=== PATIENT | male | born 1950 | race Two or more races ===

== ENCOUNTER 2019-03-23 13:32 | Emergency (ER) | payer OTHER ==
[~2019-03-23] VITALS: Ht 180.3 cm; Wt 119.7 kg
[~2019-03-23 13:32] MED LIST: NABUMETONE750 MG PO
[2019-03-23] MEDS ORDERED: FORTAMET1000 MG PO (14:10)
[2019-03-23] MEDS ORDERED: INVOKANA100 MG PO (14:10)
[2019-03-23] MEDS ORDERED: LOSARTAN POTASS50 MG PO (14:11)
[2019-03-23] MEDS ORDERED: ASPIR 8181 MG PO (14:11)
[2019-03-23] MEDS ORDERED: TOPROL XL25 M1 PO (14:11)
== END 2019-03-23 19:49 | disposition home or self-care (01) ==
LOC: ER 13:32
DX: J45.998 Other asthma (principal); J06.9 Acute upper respiratory infection, unspecified

== ENCOUNTER 2021-01-02 09:49 | Outpatient (CLI) | payer OTHER ==
[~2021-01-02 09:49] MED LIST changes: +ASPIR 8181 MG PO; +FORTAMET1000 MG PO; +INVOKANA100 MG PO; +LOSARTAN POTASS50 MG PO; +TOPROL XL25 M1 PO
== END 2021-01-02 09:58 | disposition home or self-care (01) ==
LOC: RAD 09:49
PROVIDERS: ATTEND Orthopaedic Surgery
DX: M25.561 Pain in right knee (principal); M25.562 Pain in left knee

== ENCOUNTER 2021-05-22 10:13 | Outpatient (CLI) | payer OTHER | END 2021-05-22 10:14 | disposition home or self-care (01) | LOC: LAB 10:13 | PROVIDERS: ATTEND Orthopaedic Surgery | DX: E55.9 Vitamin D deficiency, unspecified (principal); M85.9 Disorder of bone density and structure, unspecified; E56.1 Deficiency of vitamin K ==